=== PATIENT | female | born 1985 ===

== ENCOUNTER 2021-01-28 09:24 | Outpatient (CLI) | payer OTHER | END 2021-01-28 10:11 | disposition home or self-care (01) | LOC: PRENATAL 09:24 | PROVIDERS: ATTEND Obstetrics & Gynecology Maternal & Fetal Medicine | DX: O99.891 Other specified diseases and conditions complicating pregnancy (principal); O36.80X1 Pregnancy with inconclusive fetal viability, fetus 1; O09.511 Supervision of elderly primigravida, first trimester; Z36.89 Encounter for other specified antenatal screening; Z3A.13 13 weeks gestation of pregnancy ==

== ENCOUNTER 2021-03-19 07:57 | Outpatient (CLI) | payer OTHER | END 2021-03-19 09:35 | disposition home or self-care (01) | LOC: PRENATAL 07:57 | PROVIDERS: ATTEND Obstetrics & Gynecology Maternal & Fetal Medicine | DX: O35.0XX1 Maternal care for (suspected) central nervous system malformation in fetus, fetus 1 (principal); O35.3XX1 Maternal care for (suspected) damage to fetus from viral disease in mother, fetus 1; O98.512 Other viral diseases complicating pregnancy, second trimester; O09.512 Supervision of elderly primigravida, second trimester; O99.891 Other specified diseases and conditions complicating pregnancy; Z36.89 Encounter for other specified antenatal screening; Z3A.20 20 weeks gestation of pregnancy ==